=== PATIENT | female | born 1995 | race Caucasian/White ===

== ENCOUNTER 2022-03-08 21:45 | Emergency (ER) | payer OTHER, SELFPAY ==
[2022-03-08 22:09] VITALS: BP 131/84; PULSE 71; RESP 16; TEMP 36.6; O2SAT 100; BMI 23.4
[2022-03-08 22:35] LABS: MANUAL DIFF FLAG NO
[2022-03-08 22:36] LABS: Basophils Percent Auto 0.3 % (0-2); Eosinophils Absolute Auto 0.3 X10*3/uL (0.0-0.4); Eosinophils Percent Auto 4.1 % (0-4); Hematocrit 35.4 % (37.0-47.0); Hemoglobin 11.7 g/dl (12.0-16.0); Imm Gran Abs Auto 0.01 X10*3/uL (0.00-0.03); Imm Gran Pct Auto 0.1 % (0.0-0.4); Lymphocytes Absolute Auto 2.7 X10*3/uL (1.2-4.9); Mean Corpuscular HGB Conc 33.1 g/dl (31.0-35.0); Mean Corpuscular Hemoglobin 30.8 pg (27.0-33.0); Mean Corpuscular Volume 93.2 fL (80.0-98.0); Mean Platelet Volume 12.5 fL (9.4-12.3); Monocytes Absolute Auto 0.5 X10*3/uL (0.1-1.2); Neutrophils Absolute Auto 4.4 x10*3/uL (2.0-8.3); Neutrophils Percent Auto 55.5 % (45-73); Platelet Count 182 X10*3/uL (160-400); Red Cell Distribution Width 11.4 % (11.0-16.0)
[2022-03-08 22:38] LABS: Appearance Urine Clear; Color Urine Yellow; Glucose Urine UA Negative (Negative); Leukocyte Esterase Urine Negative (Negative); Nitrite Urine Negative (Negative); Specific Gravity - Urine 1.015 (1.005-1.025); Urine Blood Negative (Negative); Urine Ketones Negative (Negative); Urine Protein Negative (Neg-Trace)
[2022-03-08 22:40] LABS: UPreg QC Valid YES; Urine Pregnancy NEGATIVE (NEGATIVE)
[2022-03-08 22:55] LABS: Alanine Aminotransferase 17 U/L (0-31); Albumin Level 4.3 g/dL (3.5-5.0); Alkaline Phosphatase 87 U/L (39-117); Anion Gap 15 (12-20); Aspartate Amino Transferase 17 U/L (5-31); Bilirubin Total 0.4 mg/dL (0.0-1.0); Blood Urea Nitrogen 18 mg/dL (9-16); Calcium 9.1 mg/dL (8.4-10.2); Carbon Dioxide 23 mmol/L (22-29); Chloride 106 mmol/L (96-108); Creatinine Clr Calc Pharmacy 73.3; Estimated Glomerular Filt Rate > 60; Glucose Random 88 mg/dL (60-115); Potassium 3.6 mmol/L (3.3-5.1); Sodium 140 mmol/L (135-145); Total Protein 7.5 g/dL (6.5-8.0)
--- NOTE | 2022-03-09 01:35 | ED_ITS ---
HPI - Back Pain/Injury General Chief Complaint: Back Pain/Injury Stated Complaint: pain around lower back and lower abd Time Seen by Provider: 03/09/22 01:20 Source: patient Mode of arrival: ambulatory Limitations: no limitations History of Present Illness HPI Narrative: Patient 26 years old with history of nephrotic syndrome complaining of lower back pain for last 4 days without any urinary symptoms no vaginal discharge no fever or chills no trauma Related Data Previous Rx's Medication Instructions Recorded cyclobenzaprine 10 mg tablet 10 mg PO Q8H #20 tabs 03/09/22 ibuprofen 600 mg tablet 600 mg PO Q6H PRN fever or pain 03/09/22 #30 tabs Allergies Allergy/AdvReac Type Severity Reaction Status Date / Time No Known Allergies Allergy Unverified 01/06/20 17:31 Review of Systems Review of Systems: Yes all other systems are reviewed and are negative [facility] Social History Social History Advance Directives: No Advance Directives Information Provided: No Physical Exam Vital Signs: Vital Signs: Last Vital Signs Temp 98.0 F 03/09/22 02:16 Pulse 81 03/09/22 02:16 Resp 16 03/09/22 02:16 BP 121/75 03/09/22 02:16 Pulse Ox 96 03/09/22 02:16 O2 Del Method 03/09/22 02:16 BMI result Body Mass Index 23.4 Appearance: Alert. Oriented X3. No acute distress. ENT: Pharynx normal. Oral Mucosa moist Neck: Normal inspection. Neck supple. CVS: Normal heart rate and rhythm. Pulses normal. Respiratory: No respiratory distress. Equal air entry bilateral, no wheezing/rales/rhonchi Abdomen: Soft and nontender. Bowel sounds are present, no mass palpable, no CVA tenderness Skin: Skin warm and dry. Normal skin color. Normal skin turgor. Extremities: No lower extremity edema. No calf tenderness back: Diffuse paraspinal lumbar spine tenderness no focal spinal tenderness SLR negative bilateral Neuro: Oriented X 3. No motor deficit. No sensory deficit.No cerebellar signs , cranial nerves II-XII intact MDM - Back Pain/Injury MDM Narrative Medical decision making narrative: Patient with low back pain likely from musculoskeletal lab workup negative no signs of spinal cord involvement Lab Data Result diagrams: 03/08/22 22:29 03/08/22 22:29 Labs: Lab Results 03/08/22 03/08/22 03/08/22 Range/Units 22:25 22:25 22:29 WBC 8.0 (4.8-10.8) X10*3/uL RBC 3.80 L (4.20-5.50) X10*6/uL Hgb 11.7 L (12.0-16.0) g/dl Hct 35.4 L (37.0-47.0) % MCV 93.2 (80.0-98.0) fL MCH 30.8 (27.0-33.0) pg MCHC 33.1 (31.0-35.0) g/dl RDW 11.4 (11.0-16.0) % Plt Count 182 (160-400) X10*3/uL MPV 12.5 H (9.4-12.3) fL Immature Gran % (Auto) 0.1 (0.0-0.4) % Neut % (Auto) 55.5 (45-73) % Lymph % (Auto) 34.0 (20-40) % Alpine % (Auto) 6.0 (2-11) % Eos % (Auto) 4.1 H (0-4) % Baso % (Auto) 0.3 (0-2) % Lymph # (Auto) 2.7 (1.2-4.9) X10*3/uL Alpine # (Auto) 0.5 (0.1-1.2) X10*3/uL Eos # (Auto) 0.3 (0.0-0.4) X10*3/uL Baso # (Auto) 0.0 (0.0-0.2) X10*3/uL Abs Immat Gran (auto) 0.01 (0.00-0.03) X10*3/uL Absolute Neuts (auto) 4.4 (2.0-8.3) x10*3/uL Absolute Nucleated RBC 0.000 (0.0-0.012) X10*3/uL Nucleated RBC % (auto) 0.0 (0.0-0.2) /100WBC Sodium (135-145) mmol/L Potassium (3.3-5.1) mmol/L Chloride (96-108) mmol/L Carbon Dioxide (22-29) mmol/L Anion Gap (12-20) BUN (9-16) mg/dL Creatinine (0.5-1.4) mg/dL Estim Creat Clear Calc Estimated GFR Random Glucose (60-115) mg/dL Calcium (8.4-10.2) mg/dL Total Bilirubin (0.0-1.0) mg/dL AST (5-31) U/L ALT (0-31) U/L Alkaline Phosphatase (39-117) U/L Total Protein (6.5-8.0) g/dL Albumin (3.5-5.0) g/dL Urine Color Yellow Urine Appearance Clear Urine pH 6.0 (5.0-9.0) Ur Specific [place] 1.015 (1.005-1.025) Urine Protein Negative (Neg-Trace) mg/dL Urine Glucose (UA) Negative (Negative) mg/dL Urine Ketones Negative (Negative) mg/dL Urine Blood Negative (Negative) Urine Nitrite Negative (Negative) Ur Leukocyte Esterase Negative (Negative) Urine Test NEGATIVE (NEGATIVE) 03/08/22 Range/Units 22:29 WBC (4.8-10.8) X10*3/uL RBC (4.20-5.50) X10*6/uL Hgb (12.0-16.0) g/dl Hct (37.0-47.0) % MCV (80.0-98.0) fL MCH (27.0-33.0) pg MCHC (31.0-35.0) g/dl RDW (11.0-16.0) % Plt Count (160-400) X10*3/uL MPV (9.4-12.3) fL Immature Gran % (Auto) (0.0-0.4) % Neut % (Auto) (45-73) % Lymph % (Auto) (20-40) % Alpine % (Auto) (2-11) % Eos % (Auto) (0-4) % Baso % (Auto) (0-2) % Lymph # (Auto) (1.2-4.9) X10*3/uL Alpine # (Auto) (0.1-1.2) X10*3/uL Eos # (Auto) (0.0-0.4) X10*3/uL Baso # (Auto) (0.0-0.2) X10*3/uL Abs Immat Gran (auto) (0.00-0.03) X10*3/uL Absolute Neuts (auto) (2.0-8.3) x10*3/uL Absolute Nucleated RBC (0.0-0.012) X10*3/uL Nucleated RBC % (auto) (0.0-0.2) /100WBC Sodium 140 (135-145) mmol/L Potassium 3.6 (3.3-5.1) mmol/L Chloride 106 (96-108) mmol/L Carbon Dioxide 23 (22-29) mmol/L Anion Gap 15 (12-20) BUN 18 H (9-16) mg/dL Creatinine 0.85 (0.5-1.4) mg/dL Estim Creat Clear Calc 73.3 Estimated GFR > 60 Random Glucose 88 (60-115) mg/dL Calcium 9.1 (8.4-10.2) mg/dL Total Bilirubin 0.4 (0.0-1.0) mg/dL AST 17 (5-31) U/L ALT 17 (0-31) U/L Alkaline Phosphatase 87 (39-117) U/L Total Protein 7.5 (6.5-8.0) g/dL Albumin 4.3 (3.5-5.0) g/dL Urine Color Urine Appearance Urine pH (5.0-9.0) Ur Specific [place] (1.005-1.025) Urine Protein (Neg-Trace) mg/dL Urine Glucose (UA) (Negative) mg/dL Urine Ketones (Negative) mg/dL Urine Blood (Negative) Urine Nitrite (Negative) Ur Leukocyte Esterase (Negative) Urine Test (NEGATIVE) Discharge Plan Discharge Clinical Impression: Strain of lumbar region Patient Disposition: Home, Self-Care Instructions: Acute Low Back Pain (ED) Additional Instructions: Take pain medication and muscle relaxer as prescribed Follow with PCP if not better Prescriptions: New cyclobenzaprine 10 mg tablet 10 mg PO Q8H Qty: 20 0RF ibuprofen 600 mg tablet 600 mg PO Q6H PRN (Reason: fever or pain) Qty: 30 0RF
[2022-03-09 02:16] VITALS: BP 121/75; PULSE 81; RESP 16; TEMP 36.7; O2SAT 96
[2022-03-09] MEDS: Ibuprofen 600 MG TABLET PO (04:14)
[2022-03-09 04:19] VITALS: BP 110/64; PULSE 72; RESP 18; TEMP 36.8; O2SAT 99
[2022-03-09 16:51] LABS: CT PCR NOT DETECTED (Not Detect.); NG PCR NOT DETECTED (Not Detect.)
== END 2022-03-09 04:20 | disposition home or self-care (01) ==
PROVIDERS: Emergency Provider Internal Medicine
DX: S39.012A Strain of muscle, fascia and tendon of lower back, initial encounter (principal); X58.XXXA Exposure to other specified factors, initial encounter; Y93.9 Activity, unspecified; Y92.9 Unspecified place or not applicable; Y99.9 Unspecified external cause status
CPT/HCPCS: 36415; 80053; 81003; 81025; 85025; 87491; 87591; 99283; 99284

== ENCOUNTER 2022-03-12 08:12 | Emergency (ER) | payer OTHER, SELFPAY ==
[2022-03-12 08:20] VITALS: BP 135/84; PULSE 106; RESP 18; TEMP 36.7; O2SAT 100; BMI 24.4
[2022-03-12] MEDS: Lidocaine 4 % Patch ADH..PATCH 1 PATCH TRANSDERMA (08:56)
--- NOTE | 2022-03-12 08:58 | ED.BACK ---
HPI - Back Pain/Injury General Chief Complaint: Back Pain/Injury Stated Complaint: Lower back pain Time Seen by Provider: 03/12/22 08:22 Source: patient Mode of arrival: ambulatory Limitations: no limitations History of Present Illness HPI Narrative: Patient is a 26 old female who presents emergency department for re-evaluation of lower back pain. She reports approximately 1 week ago she was sitting with her legs crossed and after sneezing she developed pain to the left lower back, pain is now diffuse across the lower back but worse on the left side. She states that she was seen here 3 days ago for similar complaints, she was given a prescription for cyclobenzaprine which she has been taking, however she states that yesterday when attempting to get out of the bathtub she was experiencing severe pain and needed assistance to get out of the tub. Today she continues to have pain so she came back for re-evaluation. Denies fevers, chills, burning with micturition, urinary frequency, urgency, hesitancy, bladder or bowel dysfunction, numbness or tingling of the perineum or bilateral legs. Denies any recent surgical procedures, any known immune compromising conditions, personal history of cancer, or IV drug usage. MD elicited complaint: back pain Related Data Previous Rx's Medication Instructions Recorded cyclobenzaprine 10 mg tablet 10 mg PO Q8H #20 tabs 03/09/22 ibuprofen 600 mg tablet 600 mg PO Q6H PRN fever or pain 03/09/22 #30 tabs lidocaine 5 % topical patch 1 patch topical DAILY #15 ea 03/12/22 (Lidoderm) Allergies Allergy/AdvReac Type Severity Reaction Status Date / Time No Known Allergies Allergy Verified 03/12/22 08:22 Review of Systems Review of Systems: Constitutional: No fever, chills, weakness or fatigue. Skin: No rash or itching. Cardiovascular: No chest pain. No palpitations or pedal edema. Respiratory: No shortness of breath, cough or sputum production. Gastrointestinal: No nausea, vomiting or diarrhea. No abdominal pain Genitourinary: No burning micturition. No urinary frequency or incontinence. Neurologic: No headache, dizziness, syncope, unilateral weakness, ataxia, numbness or tingling in the extremities. No change in bowel or bladder control. Musculoskeletal: + Back pain as noted in HPI. No joint pain or stiffness. Yes all other systems are reviewed and are negative PMFSH Past Medical History Attestation statement: The following information was validated with the patient. Source: old records reviewed Social History Social History Alcohol intake: never Smoked in Last 30 Days: No Use of substances other than those prescribed or required for medical reasons: No Advance Directives: No Advance Directives Information Provided: No Physical Exam Vital Signs: Vital Signs: Last Vital Signs Temp 98.0 F 03/12/22 08:20 Pulse 106 H 03/12/22 08:20 Resp 18 03/12/22 08:20 BP 135/84 03/12/22 08:20 Pulse Ox 100 03/12/22 08:20 O2 Del Method 03/12/22 08:20 BMI result Body Mass Index 24.4 Appearance: Alert.?Oriented to person, place and time. No acute distress.?Normal affect. Eyes: Pupils equal, round and reactive to light.? ENT: Pharynx normal.?? Neck: Normal inspection.? Neck supple.?? CVS: Heart sounds normal. Normal heart rate and rhythm.? Pulses normal; bilateral radial pulses 2+, bilateral posterior tibial/dorsalis pedis pulses 2+.? Respiratory: No respiratory distress.? Lung sounds clear to auscultation bilaterally?? Abdomen: Soft and non-tender. Normoactive bowel sounds. No CVA tenderness Skin: Skin warm and dry.? Normal skin color.??? Extremities: No lower extremity edema.? No calf ttp? Back: + mild paraspinal muscular tenderness from lumbar region to coccyx. No CVA tenderness. No midline spinal tenderness, step-off's, or deformity. Full ROM intact in bilateral lower extremities. Straight leg test positive on right; Straight leg test positive on left. No rashes, lesions, areas of induration or fluctuance, or signs of infection noted. Neuro: Moves all extremities spontaneously. 5/5 strength in hip extension/flexion, abduction, adduction. Sensation to light touch intact bilaterally. Patellar and Achilles reflex 2+ bilaterally. No ataxia, gait normal and steady. No focal neuro deficits. Course Course Course Narrative: patient is a 26-year-old female with a past medical history of nephrotic syndrome presenting to the emergency department for re-evaluation of lower back pain. No new symptoms when compared to prior visit just reporting that pain became increasingly worse yesterday. Is still taking cyclobenzaprine and ibuprofen as advised at the time. She has not contacted her primary care provider to arrange for any follow-up. Urinalysis and urine test were negative at that time, had unremarkable CBC and CMP. No indication to repeat the studies at this time. Provided patient with a Lidoderm patch while in the emergency department, sent prescription to patient's pharmacy. Pain continues to be consistent with a strain of the lumbar region, although cannot completely exclude herniated disc. On neurological examination there are no deficits. No past medical history that would indicate her being high risk or warranting MRI/ CT. No concern for cauda equinus syndrome upon examination. Advised that she needs to contact her primary care provider to arrange for additional follow-up. Discussed worrisome signs and symptoms to return back to the emergency department for. All questions answered. She was discharged home in stable condition. Medications Administered Discontinued Medications Generic Name Dose Route Start Last Admin Trade Name Freq PRN Reason Stop Dose Admin Lidocaine 1 patch 03/12/22 08:42 03/12/22 08:56 Lidocaine 4 % Patch Adh..Patch TRANSDERMA 03/12/22 08:43 1 patch ONCE ONE Administration Protocol MDM - Back Pain/Injury Medical Records Attestation: I reviewed the patient's medical records. Discharge Plan Discharge Clinical Impression: Strain of lumbar region Patient Disposition: Home, Self-Care Instructions: Low Back Strain (ED), Lower Back Exercises (ED) Additional Instructions: As we discussed, continue using cyclobenzaprine and ibuprofen as prescribed. A new prescription for Lidoderm patch was sent to your pharmacy. Engage in gentle stretching exercises, you may apply ice or heat to the area as well. Be sure not to apply heat over the Lidoderm patch when wearing it. Contact your primary care provider to arrange for a follow-up visit within the next week for persistent pain. Return to emergency department any new or worsening symptoms or concerns. Prescriptions: New lidocaine [Lidoderm] 5 % adhesive patch,medicated 1 patch topical DAILY Qty: 15 0RF Rx Instructions: leave on most painful area for up to 12 hrs No Action cyclobenzaprine 10 mg tablet 10 mg PO Q8H Qty: 20 0RF ibuprofen 600 mg tablet 600 mg PO Q6H PRN (Reason: fever or pain) Qty: 30 0RF Referrals: Physician,None [Primary Care Provider] -
== END 2022-03-12 10:27 | disposition home or self-care (01) ==
PROVIDERS: Emergency Provider Emergency Medicine
DX: M54.50 Low back pain, unspecified (principal); Z79.899 Other long term (current) drug therapy
CPT/HCPCS: 99283; 99284

== ENCOUNTER 2024-08-16 09:00 | Emergency (ER) | payer SELFPAY ==
[2024-08-16 09:09] VITALS: BP 138/84; PULSE 79; RESP 16; TEMP 36.9; O2SAT 100; BMI 26.9
--- NOTE | 2024-08-16 11:33 | ED_ITS ---
HPI - General Adult General Chief complaint: General Medical Stated complaint: facial cyst Time Seen by Provider: 08/16/24 11:33 Source: patient and RN notes reviewed Mode of arrival: ambulatory Limitations: no limitations History of Present Illness ED Provider: Aria Johnston PA-C HPI narrative: This is a 28-year-old female, with a history of nephrotic syndrome as a child, who presents emergency department with concerns for right chin pain and swelling. Patient states that she awoke yesterday and felt a pimple which she picked up. She states that when she woke up this morning the area has increased in size, is now hard to the touch. Denies history of similar symptoms in the past. No dental pain. No fevers or chills. No dizziness. Denies taking any medications prior to arrival today. No other complaints or concerns at this time. MD complaint: Right chin swelling Onset (ago): day(s) Severity: moderate Quality: aching Pain Consistency: constant Relieving factors: none Exacerbating factors: none Associated symptoms: denies other symptoms Treatments prior to arrival: none Related Data Previous Rx's ?Medication ?Instructions ?Recorded cyclobenzaprine 10 mg tablet 10 mg PO Q8H #20 tabs 03/09/22 ibuprofen 600 mg tablet 600 mg PO Q6H PRN fever or pain 03/09/22 #30 tabs lidocaine 5 % topical patch 1 patch topical DAILY #15 ea 03/12/22 (Lidoderm) cephalexin 500 mg capsule 500 mg PO QID 5 days #20 caps 08/16/24 Allergies Allergy/AdvReac Type Severity Reaction Status Date / Time No Known Allergies Allergy Verified 08/16/24 09:12 Review of Systems Review of Systems: Constitutional: No Weight loss, No Fever, No Chills, No Night Sweats, No Fatigue, No Malaise ENT/Mouth: No Hearing loss, No Ear Pain, No Nasal Congestion, No Sinus Pain, No Hoarseness, No sore throat, No Rhinorrhea, No Swallowing Difficulty Eyes: No Eye Pain, No Swelling, No Redness, No Foreign Body, No Discharge, No Vision Changes Cardiovascular: No Chest Pain, No SOB, No Dyspnea on Exertion, No Orthopnea, No Edema, No Palpitations Respiratory: No Cough, No Sputum, No Wheezing, No Smoke Exposure, No Dyspnea Gastrointestinal: No Nausea, No Vomiting, No Diarrhea, No Constipation, No Abdominal pain, No Hematochezia, No Melena Genitourinary: No irregular bleeding, No Dysuria, No Urinary Frequency, No Hematuria, No Urinary Incontinence/retention, No Urgency, No Flank Pain, No Urinary Flow Changes, No Hesitancy Musculoskeletal: No joint pain, No Myalgias, No Joint Swelling Skin: +pustule Neuro: No Weakness, No Numbness, No Paresthesias, No Loss of Consciousness, No Dizziness, No Headache Psych: No Anxiety/Panic, No Depression, No SI/HI/AH/VH, No Social Issues, Heme/Lymph: No Bruising, No Bleeding,No Lymphadenopathy Endocrine: No Polyuria, No Polydipsia, No Temperature Intolerance Yes all other systems are reviewed and are negative Constitutional: Constitutional: Reports as per [facility] Social History Social History Alcohol intake: never Advance Directives: No Advance Directives Information Provided: Yes Do you have a plan to hurt others: No Plan Physical Exam ED Vital Signs: Vital Signs - 24 hr 08/16/24 09:09 Temperature 98.5 F Pulse Rate 79 Respiratory Rate 16 Blood Pressure 138/84 Pulse Oximetry 100 Oxygen Delivery Method Room Air BMI result Body Mass Index 26.9 Const Other: General: Awake, alert, and oriented X3. No acute distress. HEENT: Normal inspection CVS: Normal heart rate and rhythm. Pulses normal. Respiratory: No respiratory distress Skin: Right lower chin, with 1 mm hard in pustule, with surrounding induration and warmth. No drainage. Some mild erythema surrounding this region, approximately 2 mm skin around this pustule. No fluctuance. Extremities: Normal to inspection Neuro: Oriented X 3. No motor deficit. No sensory deficit. Medical Decision Making Medical Decision Making MDM Narrative: This is a 28-year-old female who presents emergency department with complaints of right chin pustule, with surrounding erythema and warmth. On arrival, vital signs within normal limits. She is speaking in full sentences under no acute distress. Patient with 1 mm pustule noted with surrounding erythema and induration. No fluctuance drainage noted. No fevers or chills. Differential diagnoses include abscess, cellulitis, folliculitis, cyst. Will treat as early cellulitis with Keflex. Given strict return precautions and advised to soak this area multiple times per day. She understands and agrees with plan. Patient stable for discharge. Differential Diagnosis Differential Diagnoses: The differential diagnosis associated with the presentation includes See above Discharge Plan Discharge Clinical Impression: Cellulitis Patient Disposition: Home, Self-Care Instructions: Cellulitis (ED), Warm Compress or Soak (ED) Additional Instructions: You were seen in the emergency department due to concerns for right-sided chin swelling. You have the start of a early skin infection. Please take prescribed antibiotic as directed, finish the entire course even if your symptoms improve. Warm compresses multiple times per day can help draw the infection out. You may also apply bacitracin to the area to help. Do not pick at this wound as this can reintroduce bacteria to the skin. You may take ibuprofen and or Tylenol as needed for pain and symptoms. Prescriptions: New cephalexin 500 mg capsule 500 mg PO QID 5 Days Qty: 20 0RF No Action cyclobenzaprine 10 mg tablet 10 mg PO Q8H Qty: 20 0RF ibuprofen 600 mg tablet 600 mg PO Q6H PRN (Reason: fever or pain) Qty: 30 0RF lidocaine [Lidoderm] 5 % adhesive patch,medicated 1 patch topical DAILY Qty: 15 0RF Rx Instructions: leave on most painful area for up to 12 hrs Stand Alone Forms: Work/School Release Print Language: Cymro
[2024-08-16 12:27] VITALS: BP 127/82; PULSE 62; RESP 18; TEMP 36.4; O2SAT 100
[2024-08-16 12:29] VITALS: BP 127/82; PULSE 62; RESP 18; TEMP 36.4; O2SAT 100
== END 2024-08-16 12:29 | disposition home or self-care (01) ==
PROVIDERS: Emergency Provider Emergency Medicine Emergency Medical Services
DX: L03.211 Cellulitis of face (principal); L08.9 Local infection of the skin and subcutaneous tissue, unspecified
CPT/HCPCS: 99283; 99284